=== PATIENT | female | born 1940 | race Caucasian/White ===

== ENCOUNTER → 2017-12-22 13:16 | Outpatient (CLI) | payer MEDICARE, OTHER, SELFPAY ==
--- NOTE | 2017-12-22 | CYSPIN_PTH ---
PATIENT: KASEY BARTON LOC: [facility] U#:[id number] AGE/SX: 85/F ROOM: RE12/22/[address]: Dr. Alex Fernandez MD : 1940 BED: DIS: SPEC #: [id number] RECD: 12/22/17 13:48 STATUS: MAYA LATONIA #: [id number] [place]: 12/22/17 00:[address]: Alex Fernandez DEPT: CYTOLOGY RECD BY: Jesse Oden Tissues: Urine Procedures: Pap Stain (control) Special Stain Group II Cytospin Fluid HEADER OPERATION: Not noted PRE-OP DIAGNOSIS: Hematuria TISSUE SUBMITTED: Urine for cytology DIAGNOSIS CYTOLOGY Urine for cytology (cytospin): Negative for malignant cells. AM:sadi 12/23/17 COMMENT The specimen primarily contains benign squamous epithelial cells. Clinical correlation is suggested. CYTOLOGY STUDY Slides are reviewed. CYTOLOGY GROSS Received is 8 ml of yellow cloudy fluid labeled with the patient's name and and designated per the requisition as urine. Submitted for cytology preparation. 12/22/17 TC:5 CPT: 78802
[2017-12-22 13:19] LABS: Cytology, Body Fluid / CSF SEE PATHOLOGY REPORT
== END ==
PROVIDERS: Visit Provider Urology
DX: R31.9 Hematuria, unspecified (principal)
CPT/HCPCS: 88108; 88313

== ENCOUNTER → 2018-04-23 13:40 | Outpatient (CLI) | payer MEDICARE, OTHER, SELFPAY ==
--- NOTE | 2018-04-23 13:45 | CT_ITS ---
STUDY: CT SOFT TISSUE NECK WITH CONTRAST REASON FOR EXAM: Female, 78 years old. Right parotid mass. RADIATION DOSAGE (If Supplied By Facility): CTDIvol = ( 22.47 ) mGy, DLP = ( 650.77 ) mGycm TECHNIQUE: The patient was scanned in a multi-detector CT scanner. High resolution transaxial imaging was performed following intravenous administration of 75CC ml of Isovue 300 contrast material. Sagittal and coronal images were reconstructed. Individualized dose optimization techniques were used for this CT. COMPARISON: None. FINDINGS: There is calcified plaque contributing to mild stenosis of the right proximal internal carotid artery. No significant stenosis is seen of the left carotid artery. Normal bilateral vertebral arteries left dominant. Normal jugular veins. Normal bilateral thyroid gland. Normal centimeter glands. Somewhat hypertrophic bilateral parotid glands. There is no parotid mass or lymphadenopathy. The parotid glands are symmetric. Pharyngeal and laryngeal structures, parapharyngeal and retropharyngeal soft tissues are normal. There is no cervical lymphadenopathy. Superficial and deep facial soft tissues appear normal. Craniofacial osseous structures normal. Sinuses, mastoid air cells and middle ear cavities clear. Prominent multilevel cervical degenerative disc disease is present between C4 and C7, with uncovertebral joint hypertrophy contributing to multilevel foraminal narrowing of mild to moderate degree, most prominent at C5-C6. CT/Soft Tissue Neck WITH Contrast IMPRESSION: There is no evidence of parotid mass or other facial mass. There is no evidence of lymphadenopathy. Electronically Signed: Joesph Norwood, at 15:22 EDT Tel , Service support ,
[2018-04-23 14:06] LABS: CREATININE FINGERSTICK 0.9 mg/dL (0.55-1.02); EGFR FINGERSTICK > 60.0000 mL/min (>60)
== END ==
PROVIDERS: Family Provider Internal Medicine; PCP Internal Medicine; Visit Provider Otolaryngology
DX: K11.8 Other diseases of salivary glands (principal)
CPT/HCPCS: 70491; Q9967

== ENCOUNTER 2018-09-22 10:45 | Emergency (ER) | payer MEDICARE, OTHER, SELFPAY ==
[2018-09-22 10:46] VITALS: BP 155/72; PULSE 77; RESP 18; TEMP 36; O2SAT 97; BMI 37.3
--- NOTE | 2018-09-22 11:07 | ED.DCSUM_ITS ---
- ER Visit Summary Date of Service: 09/22/18 Chief Complaint: Right lower back pain History of Present Illness: The patient is a [address] hypertension. No prior back history or surgery. Patient states that after taking a trip for Thanksgiving to her daughter's house in [place] after the drive down and drive back she started having right lower back pain. At times it radiates to her buttocks or hamstring. She denies any prior back history or surgery. No fever or trauma. No bowel or bladder incontinence. No leg weakness or numbness. Said it started to get a little better and then she recently took a tour bus to [facility] and it is flared up again. She followed up with a nurse practitioner at her primary care physician's office to start her on a Medrol Dosepak which seemed to make some improvement. Physical Examination: Older female no acute distress. Vital signs are stable and afebrile. HEENT exam unremarkable. Neck nontender. Lungs clear to auscultation bilaterally. Heart regular rate and rhythm no murmur. Abdomen is soft. Nontender. Nondistended. No pulsatile mass. She is moving all 4 extremities. They are neurovascularly intact. Back exam the cervical, thoracic and lumbar spine are nontender. Her right SI joint is tender to palpation. Left is unremarkable. Both lower extremities are completely neurovascularly intact. 5 out of 5 dorsi plantar flexion. Normal motor strength and sensation. No cauda equina. No saddle anesthesia. Normal medial thigh sensation. She is able lift either leg off the bed but lifting the right leg at about 30 degrees she has a positive straight leg raise with pain going down into her buttock. Test Results: None Emergency Department Course and Treatment: History and exam are consistent with right-sided sciatica. Treatment Plan: Anti-inflammatories for pain. Limited Motrin 400 mg 2-3 times a day. Ice to the area. [place] for pain. Follow-up if not improving. Disposition: Discharge Impression: Acute right-sided sciatica This note was generated with [employer] dictation software. It may contain incorrect words, spelling, and punctuation that were not noted in review of the chart prior to signing ED Disposition - Plan for ED Patient: Chief Complaint: Back Referrals: Asha Arshad MD [Primary Care Provider] -
--- NOTE | 2018-09-22 11:07 | ED.DEP ---
ED Disposition - Plan for ED Patient: Disposition: Home or Assisted Living Chief Complaint: Back Instructions: ED Sciatica Prescriptions: Hydrocodone/Acetaminophen [[place] 7.5-325 Tablet] 1 ea PO Q4H PRN PRN #20 tab PRN Reason: Pain Referrals: Asha Arshad MD [Primary Care Provider] - 1 Week if not improving Additional Instructions: Ice to your right sciatic area. Motrin 400 mg 2-3 times a day for the inflammation and pain. [place] for the pain. Plenty of fluids and fiber to prevent constipation. Follow-up with your doctor if not improving. Return to the ER if you develop weakness or bowel bladder incontinence.
[2018-09-22 11:12] VITALS: BP 148/72; PULSE 83; RESP 16; O2SAT 98
--- NOTE | 2018-09-22 11:13 | DCINST.ED_ITS ---
ED Disposition - Plan for ED Patient: Disposition: Home or Assisted Living Chief Complaint: Back Instructions: ED Sciatica Prescriptions: Hydrocodone/Acetaminophen [[place] 7.5-325 Tablet] 1 ea PO Q4H PRN PRN #20 tab PRN Reason: Pain Referrals: Asha Arshad MD [Primary Care Provider] - 1 Week if not improving Additional Instructions: Ice to your right sciatic area. Motrin 400 mg 2-3 times a day for the inflammation and pain. [place] for the pain. Plenty of fluids and fiber to prevent constipation. Follow-up with your doctor if not improving. Return to the ER if you develop weakness or bowel bladder incontinence.
== END 2018-09-22 11:14 | disposition home or self-care (01) ==
PROVIDERS: Emergency Provider Emergency Medicine; Family Provider Internal Medicine; PCP Internal Medicine
DX: M54.41 Lumbago with sciatica, right side (principal); I10 Essential (primary) hypertension; Z79.899 Other long term (current) drug therapy
CPT/HCPCS: 99282